=== PATIENT | female | born 1995 | race African-American/Black ===

== ENCOUNTER 2016-02-16 09:49 | Day surgery (SDC) | payer OTHER ==
[2016-02-16] MEDS ORDERED: METOCLOPRAMIDE HCL INJ/PF 10 MG/2 ML SDV ONE (10:45)
[2016-02-16] MEDS ORDERED: FENTANYL CITRATE INJ/PF 250 MCG/5 ML AMPULE ONE (10:45)
[2016-02-16] MEDS ORDERED: MIDAZOLAM 2 MG/2 ML INJ ONE (10:45)
[2016-02-16] MEDS ORDERED: PROPOFOL INJ 200 MG/20 ML VIAL IV ONE (10:46)
[2016-02-16] MEDS ORDERED: SUCCINYLCHOLINE CHLORIDE INJ 200 MG/10 ML VIAL ONE (10:46)
[2016-02-16] MEDS ORDERED: ONDANSETRON HCL INJ/PF 4 MG/2 ML SDV ONE (10:46)
[2016-02-16] MEDS ORDERED: DEXAMETHASONE SOD PHOS INJ 10 MG/1 ML VIAL ONE (10:46)
[2016-02-16] MEDS ORDERED: OXYMETAZOLINE HCL 0.05% NASAL SPRAY 15 ML BOTTLE ONE (10:49)
--- NOTE | 2016-02-16 11:48 | SURGICARE OPERATIVE REPORT E ---
[facility] NAME: MICKI JURADO AGE: 20Y DATE OF SURGERY: 02/16/2016 ROOM: PREOPERATIVE DIAGNOSIS: Chronic tonsillitis with tonsillolithiasis. POSTOPERATIVE DIAGNOSIS: Chronic tonsillitis with tonsillolithiasis. PROCEDURE: Bilateral tonsillectomies. SURGEON: HOMERO CORNEJO M.D. ANESTHESIA: General endotracheal. ESTIMATED BLOOD LOSS: 5 mL. COMPLICATIONS: None. INTRAOPERATIVE FINDINGS: 2+ endophytic and cryptic tonsils with significant tonsil concretions. INDICATIONS FOR PROCEDURE: A 20-year-old woman with chronic tonsillitis with tonsillolithiasis that was symptomatic and refractory to observation and conservative management. PROCEDURE IN DETAIL: The patient was met in the preoperative holding area, questions were answered, consent was verified. She was then brought back to the operating room, placed supine on the operating table, and general endotracheal anesthesia was induced without difficulty. The table was turned and she was placed in slight extension. Her eyes were protected with a towel head drape and a preoperative time out was performed. A [employer] mouth gag was inserted and opened to visualize the oropharynx and suspended from the Luu stand. The left tonsil was grasped and dissected from the peritonsillar plane with electrocautery. The right tonsil was then similarly dissected. Hemostasis was achieved as necessary with suction electrocautery and verified after a brief period of desuspension from the mouth gag. It was then removed and she was turned over to the anesthesia team for reversal and extubation. She tolerated the procedure well. DICTATING PHYSICIAN: HOMERO CORNEJO M.D. [id number] Y#: [id number] ID: [id number] JOB#: [id number] ACCT: [id number] cc:HOMERO CORNEJO M.D. >
[2016-02-16] MEDS: FENTANYL CITRATE INJ/PF 100 MCG/2 ML AMPUL ONE ×2 (11:49→12:13)
== END 2016-02-16 13:41 | disposition home or self-care (01) ==
LOC: SC 09:49
PROVIDERS: ATTEND Otolaryngology
PROC: 0CTPXZZ Resection of Tonsils, External Approach (ICD-10-PCS; principal; 2016-02-16 10:30)
DX: J35.1 Hypertrophy of tonsils (principal); J35.8 Other chronic diseases of tonsils and adenoids
CPT/HCPCS: 88304 ×2; 42826; J2250; J3010 ×2; J2765; J0330; J2405; J2704; J1100; 170; J3490

== ENCOUNTER → 2016-03-06 | Outpatient (CLI) | payer OTHER ==
[2016-03-06 12:24] LABS: APPEARANCE,URINE CLEAR; BILIRUBIN,URINE NEGATIVE (NEGATIVE); GLUCOSE, URINE NEGATIVE (NEGATIVE); KETONES,URINE NEGATIVE (NEGATIVE); LEUKOCYTE ESTERASE,URINE NEGATIVE (NEGATIVE); NITRITE,URINE NEGATIVE (NEGATIVE); PROTEIN,URINE NEGATIVE (NEGATIVE); URINE SPECIFIC GRAVITY 1.015; UROBILINOGEN,URINE NEGATIVE mg/dL (<2.0)
[2016-03-06 12:47] LABS: ANION GAP 10 (5-19); BLOOD UREA NITROGEN 18 mg/dL (7-20); CALCIUM 9.5 mg/dL (8.4-10.2); CARBON DIOXIDE 27 mmol/L (22-30); CHLORIDE 107 mmol/L (98-107); CREATININE RESULT 0.79 mg/dL (0.52-1.25); GLUCOSE 79 mg/dL (75-110); POTASSIUM 4.6 mmol/L (3.6-5.0); SODIUM 143.6 mmol/L (137-145)
[2016-03-07 11:39] LABS: CREATININE URINE 77.5 mg/dL (Not Estab.); MICROALBUMIN URINE <3.0 ug/mL (Not Estab.)
== END ==
LOC: OD 10:56
PROVIDERS: ATTEND Internal Medicine Nephrology
DX: I10 Essential (primary) hypertension (principal); N28.1 Cyst of kidney, acquired; R80.9 Proteinuria, unspecified
CPT/HCPCS: 36415; 80048; 81001; 82043; 82570

== ENCOUNTER 2016-07-25 23:36 | Emergency (ER) | payer OTHER ==
[2016-07-25 23:49] VITALS: BP 148/77
[2016-07-26] MEDS ORDERED: LIDOCAINE 1% INJ-PF (10 MG/ML) 30 ML SDV INJ ONE (00:44)
[2016-07-26] MEDS ORDERED: AZITHROMYCIN 250 MG TABLET PO ONE (00:44)
[2016-07-26] MEDS ORDERED: CEFTRIAXONE INJ 250 MG VIAL IM ONE (00:44)
--- NOTE | 2016-07-26 01:19 | ER Document Report ---
HPI - HPI Patient complains to provider of: request for std check Pain Level: Denies Context: 1-year-old female presents to ED for STD check. She states that she is 8 weeks 6 days and did a formal contact has contacted her and told her that they were positive for gonorrhea. Associated Symptoms: None - Symptoms except for some nausea from the patient was informed that they been intermittent with a was positive for gonorrhea. Exacerbated by: Denies Relieved by: Denies Similar symptoms previously: No Recently seen / treated by doctor: No - ROS ROS below otherwise negative: Yes - CONSTITUTIONAL Constitutional: DENIES: Fever, Chills - EENT EENT: DENIES: Sore Throat, Ear Pain, Nasal Drainage-Clear, Nasal Drainage- Purulent, Congestion, Eye problems - NEURO Neurology: DENIES: Headache, Weakness, Vision blurred, Dizzinesss / Vertigo - CARDIOVASCULAR Cardiovascular: DENIES: Chest pain - RESPIRATORY Respiratory: DENIES: Trouble Breathing, Coughing - GASTROINTESTINAL Gastrointestinal: REPORTS: Nausea. DENIES: Abdominal Pain, Patient vomiting, Diarrhea, Constipation, Black / Bloody Stools - URINARY Urinary: DENIES: Dysuria, Urgency, Frequency - REPRODUCTIVE Reproductive: REPORTS: :. DENIES: Postmenopausal, Abnormal bleeding / discharge - MUSCULOSKELETAL Musculoskeletal: DENIES: Extremity pain, Back Pain, Neck Pain, Swelling - DERM Skin Color: Normal Skin Problems: None Past Medical History - General Information source: Patient - Social History Smoking Status: Never Smoker Cigarette use (# per day): No Chew tobacco use (# tins/day): No Smoking Education Provided: No Frequency of alcohol use: None Drug Abuse: None Occupation: active duty Lives with: Spouse/Significant other Family History: Arthritis, DM, Hypertension, Malignancy Patient has suicidal ideation: No - Past Medical History Cardiac Medical History: Reports: Hx Hypertension Denies: Hx Heart Attack Pulmonary Medical History: Reports: None EENT Medical History: Reports: None Neurological Medical History: Reports: None Endocrine Medical History: Reports: None Renal/ Medical History: Reports: None Malignancy Medical History: Reports: None GI Medical History: Reports: None Skin Medical History: Reports None Psychiatric Medical History: Reports: None Traumatic Medical History: Reports: None Infectious Medical History: Reports: None Past Surgical History: Reports: Hx Adenoidectomy, Hx Oral Surgery - wisdom teeth , Hx Tonsillectomy Vertical Provider Document - CONSTITUTIONAL Agree With Documented VS: Yes - INFECTION CONTROL TRAVEL OUTSIDE OF THE [place] IN LAST 30 DAYS: No - HEENT HEENT: Atraumatic, Normal ENT Exam, Normocephalic, PERRLA - NECK Neck: Normal Inspection, Supple - RESPIRATORY Respiratory: Breath Sounds Normal, No Respiratory Distress, Chest Non-Tender O2 Sat by Pulse Oximetry: 99 - CARDIOVASCULAR Cardiovascular: Regular Rate, Regular Rhythm, No Murmur - GI/ABDOMEN Gastrointestinal: Abdomen Soft, No Organomegaly, Normal Bowel Sounds, Abnormal Bowel Sounds - MUSCULOSKELETAL/EXTREMETIES Musculoskeletal/Extremeties: MAEW, FROM, Non-Tender - NEURO Level of Consciousness: Awake, Alert, Appropriate - DERM Integumentary: Warm, Dry, No Rash Course - Vital Signs Vital signs: Temp Pulse Resp BP Pulse Ox 98.7 F 81 16 148/77 H 99 07/25/16 23:46 07/25/16 23:46 07/25/16 23:46 07/25/16 23:46 07/25/16 23:46 Discharge - Discharge Clinical Impression: Exposure to STD Condition: Stable Disposition: HOME, SELF-CARE Additional Instructions: Gonorrhea You state you have been exposed to gonorrhea. In men, this germ infects the urethra (and sometimes the throat). Men usually have drainage from the penis and pain with urination. In women, the germ infects the vagina and fallopian tubes. There may be discharge and pelvic pain. Some women have no symptoms at all. The infection can do permanent damage to the tubes and ovaries. It should be taken very seriously. Treatment is antibiotics. It's important that you receive all recommended medication. Use condoms to prevent spread of the infection. Because this infection is spread sexually, your sexual partner must be checked before resuming sexual relations. If a culture shows gonorrhea germs, it must be reported to the health department. Call the doctor or return at once if you develop increasing fever, rash, joint swelling, severe pelvic pain, vaginal bleeding (other than your period), or problems with your bladder or bowels. Azithromycin Azithromycin (Zithromax) is a broad spectrum antibiotic in the same class as erythromycin. It can treat a variety of bacterial infections, but is most frequently used for respiratory infections. Azithromycin is extremely long-lasting. It accumulates in body tissues and continues to kill bacteria for many days. In order to improve absorption, Azithromycin should be taken at least one hour before or two hours after a meal. It does not have the same strong tendency to upset the stomach as erythromycin and is usually very well tolerated. Patients who have had a rash or other true allergic reactions to erythromycin should not take this medication. Call if you develop gastrointestinal distress, severe diarrhea, rash, hives, itching, or shortness of breath. Rocephin You have been given an injection of an antibiotic called Rocephin ( ceftriaxone). Sometimes the injection must be combined with antibiotic pills. For some infections, such as an uncomplicated ear infection, Rocephin provides all the antibiotic that's needed. The antibiotic will be in your body for about two days. For serious infections, we usually repeat doses of Rocephin daily. Side effects are very unusual following a shot. Women may develop vaginal yeast infections, and babies can get yeast (thrush) in the mouth following the use of antibiotics. Contact your physician if you have symptoms with this medication. Allergy to this antibiotic can result in hives, wheezing, faintness, or itching. If symptoms of allergy occur, call the doctor at once. FOLLOW-UP CARE: If you have been referred to a physician for follow-up care, call the physician s office for an appointment as you were instructed or within the next two days. If you experience worsening or a significant change in your symptoms, notify the physician immediately or return to the Emergency Department at any time for re-evaluation. Follow up with your BAS may call for the results in 2-3 hours at [phone] Forms: Return to Work
[2016-07-26 01:35] LABS: APPEARANCE,URINE SLIGHTLY-CLOUDY; BILIRUBIN,URINE NEGATIVE (NEGATIVE); GLUCOSE, URINE NEGATIVE (NEGATIVE); KETONES,URINE NEGATIVE (NEGATIVE); LEUKOCYTE ESTERASE,URINE NEGATIVE (NEGATIVE); NITRITE,URINE NEGATIVE (NEGATIVE); PROTEIN,URINE NEGATIVE (NEGATIVE); URINE SPECIFIC GRAVITY 1.019; UROBILINOGEN,URINE NEGATIVE mg/dL (<2.0)
[2016-07-26 03:12] LABS: CHLAM PCR NOT DETECTED (NOT DETECT)
== END 2016-07-26 01:28 | disposition home or self-care (01) ==
LOC: ER 23:36
DX: Z20.2 Contact with and (suspected) exposure to infections with a predominantly sexual mode of transmission (principal); O26.891 Other specified pregnancy related conditions, first trimester; O16.1 Unspecified maternal hypertension, first trimester; Z3A.08 8 weeks gestation of pregnancy
CPT/HCPCS: 99283; 96372; 81001; 87491; 87591; J3490; J0696